=== PATIENT | female | born 1985 ===

== ENCOUNTER 2019-12-21 11:32 | Inpatient (IN) | payer BC ==
[2019-12-21] MEDS ORDERED: NalbUPHINE 10 MG/1 ML INJ IV PRN (13:03)
[2019-12-21] MEDS ORDERED: LIDOCAINE (2%) 20 MG/1 ML VIAL 20 ML MDV INFILTRATI ONE (13:03)
[2019-12-21] MEDS ORDERED: ONDANSETRON 4 MG/2 ML INJ IV PRN (13:03)
[2019-12-21] MEDS ORDERED: fentaNYL 100 MCG/2 ML INJ IV PRN (13:03)
[2019-12-21] MEDS ORDERED: BUTORPHANOL 2 MG/1 ML INJ IV PRN ×2 (13:03)
[2019-12-21] MEDS ORDERED: MINERAL OIL 30 ML ORAL LIQD PO PRN (13:03)
[2019-12-21] MEDS ORDERED: ePHEDrine SULFATE 50 MG/1 ML INJ IV PRN (13:03)
[2019-12-21] MEDS ORDERED: TERBUTALINE 1 MG/1 ML INJ SUB-Q PRN (13:03)
[2019-12-21] MEDS ORDERED: ACETAMINOPHEN 325 MG TAB PO PRN (13:03)
[2019-12-21] MEDS ORDERED: OXYTOCIN DRIP 30 UNITS/500 ML BAG IV SCH (14:00)
[2019-12-21] MEDS ORDERED: OXYTOCIN 20 UNIT/1000ML DRIP 20 UNITS/1,000 ML BAG IV SCH (14:00)
--- NOTE | 2019-12-21 14:08 | History and Physical Report ---
History of Present Illness Date of examination: 12/21/19 Date of admission: 12/21/19 11:32 Chief complaint: Pt denies any complaints History of present illness: 37 y/o female presents today from [facility] for an Induction r/t a BPP of 09/04, BMI 43.4, AMA, GDM, and new onset preeclampsia. Pt initiated her pnc at [facility] at 12 6/7 wks gestation and was followed by [facility]. She is Prydeinig speaking only and takes Levothyroxine for hypothyroidism. Her GBS is neg. Pt was admitted to L&D. 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) Family/Genetic History: diabetes, other (cerebral palsy) Social history: no significant social history - Obstetrical History Expected Date of Delivery: 12/31/19 Actual Gestation: 38 Week(s) 4 Day(s) : 6 Para: 4 Hx # Term Pregnancies: 3 Number of Pregnancies: 1 Spontaneous Abortions: 1 Induced : 0 Number of Living Children: 4 Medications and Allergies Allergies Allergy/AdvReac Type Severity Reaction Status Date / Time No Known Allergies Allergy Unverified 12/21/19 13:41 Home Medications Medication Instructions Recorded Confirmed Last Taken Type Levothyroxine Sodium 188 mg PO DAILY 12/21/19 12/21/19 12/21/19 History 188 Vitamin 1 tab PO DAILY 12/21/19 12/21/19 12/21/19 History 1 metFORMIN 1 tab PO DAILY 12/21/19 12/21/19 12/20/19 History 1 Active Meds: Active Medications Acetaminophen (Tylenol) 650 mg PO Q4H PRN PRN Reason: Pain, Mild (1-3) Butorphanol Tartrate (Stadol) 2 mg IV Q2H PRN PRN Reason: Pain , Severe (7-10) Butorphanol Tartrate (Stadol) 1 mg IV Q2H PRN PRN Reason: Pain, Moderate(4-6) LABOR PAIN Ephedrine Sulfate (Ephedrine Sulfate) 10 mg IV Q2M PRN PRN Reason: Hypotension Fentanyl (Sublimaze) 100 mcg IV Q2H PRN PRN Reason: Pain,Severe (7-10) LABOR PAIN Oxytocin/Sodium Chloride (Pitocin/Ns 30 Unit/500ml) 30 units in 500 mls @ 2 mls/hr IV TITR REN; Protocol Lactated Ringer's (Lactated Ringers) 1,000 mls @ 125 mls/hr IV DIRECT REN Oxytocin/Sodium Chloride (Pitocin/Ns 20 Unit/1000ml Drip) 20 units in 1,000 mls @ 125 mls/hr IV DIRECT REN Levothyroxine Sodium (Synthroid) 100 mcg PO DAILY@0600 REN Levothyroxine Sodium (Synthroid) 88 mcg PO DAILY@0600 REN Mineral Oil (Mineral Oil) 30 ml PO QHS PRN PRN Reason: Constipation Multivitamins/Iron/Calcium ( Vitamin) 1 each PO DAILY REN Nalbuphine HCl (Nalbuphine) 10 mg IV Q2H PRN PRN Reason: Pain, Moderate (4-6) Ondansetron HCl (Zofran) 4 mg IV Q8H PRN PRN Reason: Nausea And Vomiting Terbutaline Sulfate (Brethine) 0.25 mg SUB-Q ONCE PRN PRN Reason: Hyperstimulation/Hypertonicity Review of Systems All systems: negative Eyes: deferred Ears, nose, mouth and throat: deferred Breasts: normal Genitourinary: normal appearance Rectal Exam: deferred - Vital Signs Vital signs: Vital Signs Pulse Ox 71 L 12/21/19 12:14 Temp Pulse Resp BP Pulse Ox 98.2 F 74 18 137/74 97 12/21/19 12:30 12/21/19 12:39 12/21/19 12:30 12/21/19 12:30 12/21/19 12:39 - Physical Exam Breasts: Positive: normal Cardiovascular: Regular rate Lungs: Positive: Clear to auscultation Abdomen: Positive: normal appearance, soft, normal bowel sounds, other (gravid) Genitourinary (Female): Positive: normal external genitalia, normal perenium Vulva: both: normal Vagina: Positive: normal moisture Uterus: Positive: enlarged, normal contour, other (gravid) Adnexa: both: normal Anus/Rectum: Positive: normal perianal skin Extremities: Positive: normal - Obstetrical FHR: auscultation normal, category 1 Uterine Contraction Monitor Mode: External Cervical Dilatation: 2 Cervical Effacement Percentage: 50 station: -3 Uterine Contraction Pattern: Irregular Uterine Tone Measurement Phase: Resting Uterine Contraction Intensity: Mild Results All other labs normal. Assessment and Plan A: IUP@ 38.4 wks GDM,AMA,Preeclampsia Hypothyrodism,maternal obesity Prydeinig speaking only P: Admit to L&D for IOL Continuous monitoring Accucheck q 2 hr Pain med prn/Epidural Start Pitocin per hospital protocal/per orders Anticipate - Patient Problems (1) AMA (advanced maternal age) multigravida 35+ Current Visit: Yes Status: Acute (2) Gestational diabetes mellitus (GDM) Current Visit: Yes Status: Acute (3) Hypothyroidism Current Visit: Yes Status: Acute (4) Maternal obesity affecting , antepartum Current Visit: Yes Status: Acute (5) Preeclampsia Current Visit: Yes Status: Acute
[2019-12-21] MEDS: LACTATED RINGERS 1,000 ML IV SCH ×2 (14:37→23:48)
[2019-12-21 15:31] LABS: Hematocrit 33.8 % (30.3-42.9); Hemoglobin 11.9 gm/dl (10.1-14.3); Mean Corpuscular HGB Conc 35 % (30-34); Mean Corpuscular Volume 85 fl (79-97); Platelet Count 201 K/mm3 (140-440); Red Blood Count 3.95 M/mm3 (3.65-5.03)
[2019-12-21 15:54] LABS: Alanine Aminotransferase 7 units/L (7-56); Albumin 3.5 g/dL (3.9-5); Blood Urea Nitrogen 16 mg/dL (7-17); Calcium 9.2 mg/dL (8.4-10.2); Hemolysis Index 15
[2019-12-21 16:00] LABS: BUN/Creatinine Ratio 27
[2019-12-21] MEDS ORDERED: DINOPROSTONE 10 MG VAG SUPP VG ONE (19:40)
--- NOTE | 2019-12-21 19:41 | Event Note ---
Date: 12/21/19 still 2 cm/thick despite pit. Pit stopped as a result and will ripen overnight with cervidil.
[2019-12-22] MEDS: LEVOTHYROXINE 100 MCG TAB PO SCH (06:31)
[2019-12-22] MEDS: LEVOTHYROXINE 88 MCG TAB PO SCH (06:32)
[2019-12-22] MEDS ORDERED: OXYTOCIN 10 UNIT/1 ML INJ ONE (07:07)
[2019-12-22] MEDS ORDERED: OXYTOCIN 10 UNIT/1 ML INJ IM ONE (07:10)
[2019-12-22] MEDS ORDERED: LIDOCAINE (2%) 20 MG/1 ML VIAL 20 ML MDV INFILTRATI ONE (07:25)
[2019-12-22] MEDS ORDERED: LANOLIN/ZINC/DIMETHICONE (LANSINOH) 7 GM TP PRN ×2 (07:31→09:00)
[2019-12-22] MEDS ORDERED: CARBOPROST TROMETHAMINE 250 MCG/1 ML INJ IM PRN (07:31)
--- NOTE | 2019-12-22 07:36 | Procedure Note ---
OB Delivery Note - Delivery Date of Delivery: 12/22/19 Surgeon: MICHAEL LOGAN Estimated blood loss: 200cc - Vaginal Delivery presentation: vertex Delivery position: OA Delivery induction: cervidil Route of delivery: Delivery placenta: spontaneous Delivery cord: 3 umbilical vessels Episiotomy: none Delivery laceration: 2nd degree Delivery repair: vicryl Anesthesia: local Delivery comments: Anterior shoulder delivered without difficulty. Baby bulb suctioned at the perineum and again after delivery. Cord clamped and cut. Baby to the warmer. Placenta delivered spontaneously and was delivered in its entirety. Second-degree laceration repaired with 2-0 Vicryl. Good hemostasis throughout. Mother and baby stable. - Infant A at 1 minute: 8 at 5 minutes: 9 Infant Gender: Female
[2019-12-22] MEDS ORDERED: ACETAMINOPHEN 325 MG TAB PO PRN (08:00)
[2019-12-22] MEDS ORDERED: OXYTOCIN 20 UNIT/1000ML DRIP 20 UNITS/1,000 ML BAG IV SCH (08:00)
[2019-12-22] MEDS ORDERED: diphenhydrAMINE 25 MG CAP PO PRN (08:00)
[2019-12-22] MEDS ORDERED: BENZOCAINE/MENTHOL 20/0.5% TOP SPRAY 56 GM TP PRN (08:00)
[2019-12-22] MEDS ORDERED: WITCH HAZEL/ GLYCERIN PAD TP PRN (08:00)
[2019-12-22] MEDS: IBUPROFEN 600 MG TAB PO SCH ×3 (08:38→21:41)
[2019-12-22] MEDS ORDERED: PROMETHAZINE 25 MG TAB PO PRN (09:00)
[2019-12-22] MEDS ORDERED: PROMETHAZINE 25 MG RECT SUPP PR PRN (09:00)
[2019-12-22] MEDS ORDERED: ONDANSETRON 4 MG/2 ML INJ IV PRN (09:00)
[2019-12-22] MEDS ORDERED: oxyCODONE /ACETAMINOPHEN 5-325MG TAB PO PRN (09:00)
[2019-12-22] MEDS ORDERED: PRENATAL VIT27-FE FUMARATE-FOLIC ACID VIT TAB PO SCH (10:00)
[2019-12-22] MEDS ORDERED: NON-FORMULARY EACH (Prenatal Vitamin 1 TAB) PO SCH (10:00)
[2019-12-22] MEDS ORDERED: LEVOTHYROXINE SODIUM PO SCH (10:00)
[2019-12-22 20:56] LABS: Hemoglobin 10.1 gm/dl (10.1-14.3)
[2019-12-22] MEDS ORDERED: MAGNESIUM HYDROXIDE (MOM) ORAL LIQD UDC PO PRN (22:00)
[2019-12-23] MEDS: IBUPROFEN 600 MG TAB PO SCH (03:10)
[2019-12-23] MEDS: LEVOTHYROXINE 100 MCG TAB PO SCH (06:32)
[2019-12-23] MEDS: LEVOTHYROXINE 88 MCG TAB PO SCH (06:32)
[2019-12-23] MEDS ORDERED: FERROUS SULFATE 325 MG TAB PO SCH (11:00)
--- NOTE | 2019-12-23 11:15 | Discharge Summary ---
Providers - Providers Date of Admission: 12/21/19 11:32 Date of discharge: 12/23/19 (1600) Attending physician: MICHAEL LOGAN Primary care physician: MICHAEL LOGAN Hospitalization Reason for admission: induction of labor Delivery: Episiotomy: none Laceration: 2nd degree (healing as expected) Other procedures: none complications: none Discharge diagnosis: IUP at term delivered, other (thyroid disorder; elevated B/Ps) baby: female Hospital course: See admission H & P, OB delivery summary and PP progress notes Condition at discharge: Stable Disposition: DC-01 TO HOME OR SELFCARE - Discharge Diagnoses (1) Status post normal vaginal delivery Status: Acute (2) Hypothyroidism Status: Acute (3) Elevated blood pressure reading Status: Acute (4) Anemia Status: Acute Qualifiers: Anemia type: other cause Other causes of anemia: acute posthemorrhagic Qualified Code(s): D62 - Acute posthemorrhagic anemia Plan - Discharge Medications Prescriptions: Ferrous Sulfate [Feosol 325 MG tab] 325 mg PO QDAY 30 Days #30 tablet labetaloL [Labetalol 200mg TAB] 200 mg PO BID 7 Days #14 tablet - Provider Discharge Summary Activity: routine, no sex for 6 weeks, no heavy lifting 4 weeks, no strenuous exercise Diet: other (Iron rich diet) Instructions: routine Additional instructions: [] Smoking cessation referral if applicable(refer to patient education folder for contact #) [] Refer to [facility] Booklet Call your doctor immediately for: * Fever > 100.5 * Heavy vaginal bleeding ( >1 pad per hour) * Severe persistent headache * Shortness of breath * Reddened, hot, painful area to leg or breast * Drainage or odor from incision. * Keep vaginal incision clean and dry at all times and follow doctor's instructions regarding bathing/showering * Follow up in clinic in 1 week for B/P check - Follow up plan Follow up: MICHAEL LOGAN MD [Primary Care Provider] - 7 Days
[2019-12-23 13:34] VITALS: BP 147/88
== END 2019-12-23 15:40 | disposition home or self-care (01) | DRG 806 ==
LOC: LD 11:32 → OB 12-22 09:50
PROVIDERS: ADMIT Obstetrics & Gynecology; ATTEND Obstetrics & Gynecology
PROC: 10E0XZZ Delivery of Products of Conception, External Approach (ICD-10-PCS; principal; 2019-12-22)
PROC: 3E0P7VZ Introduction of Hormone into Female Reproductive, Via Natural or Artificial Opening (ICD-10-PCS; 2019-12-22)
DX: O14.94 Unspecified pre-eclampsia, complicating childbirth (principal); D62 Acute posthemorrhagic anemia; Z37.0 Single live birth; O24.429 Gestational diabetes mellitus in childbirth, unspecified control; O99.214 Obesity complicating childbirth; O09.523 Supervision of elderly multigravida, third trimester; E66.9 Obesity, unspecified; O99.284 Endocrine, nutritional and metabolic diseases complicating childbirth; E03.9 Hypothyroidism, unspecified; Z79.84 Long term (current) use of oral hypoglycemic drugs; O70.1 Second degree perineal laceration during delivery; Z3A.38 38 weeks gestation of pregnancy; Z20.828 Contact with and (suspected) exposure to other viral communicable diseases; O90.81 Anemia of the puerperium
CPT/HCPCS: 36415; 59200; 80053; 82962; 85014; 85018; 85027; 86850; 86900; 86901; G0378; J0595; J2590; J7120; U0003-CS